=== PATIENT | female | born 1990 | race Caucasian/White ===

== ENCOUNTER 2017-02-06 16:36 | Emergency (ER) | payer OTHER ==
[2017-02-06 16:39] VITALS: BP 129/82; PULSE 122; TEMP 98.1; BMI 18.3
--- NOTE | 2017-02-06 17:09 | PDOC ---
History of Present Illness - General History Source: Patient Exam Limitations: No Limitations - History of Present Illness Initial Comments: 02/06/17 17:32 The patient is a 26 year old female with no significant past medical history who presents to the ED with complaints of 6 days of abdominal pain, nausea, and vomiting. The patient states that she was hungover Wednesday morning but persisted to feel sick the rest of the week. She reports a cramping, stabbing pain located mostly in her lower abdominal region. She also has been experiencing diarrhea throughout the week as well. The patient adds that she hasnt been eating as much due to her symptoms. 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 She denies any fever or chills, cough, shortness of breath, chest pain, or urinary symptoms. LMP was mid December. <Liv Rivera - Last Filed: 02/06/17 17:32> <Leilani Lisa - Last Filed: 02/08/17 02:59> - General History Source: Patient Exam Limitations: No Limitations <Dilma Mcpherson - Last Filed: 02/08/17 13:33> - General Chief Complaint: Pain Stated Complaint: ABDOMINAL PAIN Time Seen by Provider: 02/06/17 17:07 Past History <Liv Rivera - Last Filed: 02/06/17 17:32> <Leilani Lisa - Last Filed: 02/08/17 02:59> - Past Medical History Other medical history: NONE - Psycho/Social/Smoking Cessation Hx Anxiety: No Suicidal Ideation: No Smoking History: Current some day smoker Number of Cigarettes Smoked Daily: 3 Information on smoking cessation initiated: No Hx Alcohol Use: Yes (SOCIAL) Drug/Substance Use Hx: No Substance Use Type: None <Dilma Mcpherson - Last Filed: 02/08/17 13:33> - Past Medical History Allergies/Adverse Reactions: Allergies Allergy/AdvReac Type Severity Reaction Status Date / Time No Known Allergies Allergy Verified 02/06/17 16:39 Home Medications: Ambulatory Orders NK [No Known Home Medication] 02/06/17 Review of Systems - Review of Systems Able to Perform ROS?: Yes Comments:: 02/06/17 17:39 GENERAL/CONSTITUTIONAL: No fever or chills. No weakness. HEAD, EYES, EARS, NOSE AND THROAT: No change in vision. No ear pain or discharge. No sore throat. CARDIOVASCULAR: No chest pain or shortness of breath. RESPIRATORY: No cough, wheezing, or hemoptysis. GASTROINTESTINAL: Present: nausea, vomiting, diarrhea, abdominal pain No constipation. GENITOURINARY: No dysuria, frequency, or change in urination. MUSCULOSKELETAL: No joint or muscle swelling or pain. No neck or back pain. SKIN: No rash NEUROLOGIC: No headache, vertigo, loss of consciousness, or change in strength/ sensation. ENDOCRINE: No increased thirst. No abnormal weight change. HEMATOLOGIC/LYMPHATIC: No anemia, easy bleeding, or history of blood clots. ALLERGIC/IMMUNOLOGIC: No hives or skin allergy. All Other Systems: Reviewed and Negative <Liv Rivera - Last Filed: 02/06/17 17:32> *Physical Exam - Vital Signs Last Vital Signs Temp Pulse Resp BP Pulse Ox 98.1 F 122 H 20 129/82 99 02/06/17 16:37 02/06/17 16:37 02/06/17 16:37 02/06/17 16:37 02/06/17 16:37 - Physical Exam Comments: 02/06/17 17:40 GENERAL: Awake, alert, and fully oriented, in no acute distress HEAD: No signs of trauma EYES: PERRLA, EOMI, sclera anicteric, conjunctiva clear ENT: Auricles normal inspection, hearing grossly normal, nares patent, oropharynx clear without exudates. Moist mucosa NECK: Normal ROM, supple, no lymphadenopathy, JVD, or masses LUNGS: Breath sounds equal, clear to auscultation bilaterally. No wheezes, and no crackles HEART: Regular rate and rhythm, normal S1 and S2, no murmurs, rubs or gallops ABDOMEN: LUQ, LLQ, superpubic, RLQ tenderness. Normoactive bowel sounds. No guarding, no rebound. No masses EXTREMITIES: Normal range of motion, no edema. No clubbing or cyanosis. No cords, erythema, or tenderness NEUROLOGICAL: Cranial nerves II through XII grossly intact. Normal speech, normal gait SKIN: Warm, Dry, normal turgor, no rashes or lesions noted. <Liv Rivera - Last Filed: 02/06/17 17:32> - Vital Signs Last Vital Signs Temp Pulse Resp BP Pulse Ox 98.1 F 122 H 20 129/82 99 02/06/17 16:37 02/06/17 16:37 02/06/17 16:37 02/06/17 16:37 02/06/17 16:37 <Leilani Lisa - Last Filed: 02/08/17 02:59> - Vital Signs Last Vital Signs Temp Pulse Resp BP Pulse Ox 98.1 F 122 H 20 129/82 99 02/06/17 16:37 02/06/17 16:37 02/06/17 16:37 02/06/17 16:37 02/06/17 16:37 <Dilma Mcpherson - Last Filed: 02/08/17 13:33> ED Treatment Course - LABORATORY CBC & Chemistry Diagram: 02/06/17 17:20 02/06/17 17:20 - ADDITIONAL ORDERS Additional order review: Laboratory Results 02/06/17 02/06/17 02/06/17 18:36 17:20 17:20 Sodium 137 Potassium 4.1 Chloride 102 Carbon Dioxide 26 Anion Gap 9 BUN 9 Creatinine 0.6 Creat Clearance w eGFR > 60 Random Glucose 83 Calcium 9.2 Total Bilirubin 1.3 H AST 12 L ALT 18 Alkaline Phosphatase 61 Total Protein 7.0 Albumin 3.8 Total Amylase 63 Lipase 146 Beta HCG, Quant 51439.8 Serum , Qual Positive Urine Color Ltyellow Urine Appearance Clear Urine pH 7.0 Ur Specific [place] 1.010 Urine Protein Negative Urine Glucose (UA) Negative Urine Ketones 1+ H Urine Blood Negative Urine Nitrite Negative Urine Bilirubin Negative Urine Urobilinogen Negative Ur Leukocyte Esterase Trace H Urine RBC <1 Urine WBC 5 Ur Epithelial Cells Few Urine Bacteria Few Urine Mucus Rare 02/06/17 17:20 RBC 4.13 MCV 86.2 MCHC 33.6 RDW 13.9 MPV 8.4 Neutrophils % 76.8 Lymphocytes % 12.6 Monocytes % 8.8 Eosinophils % 1.2 Basophils % 0.6 - RADIOLOGY Radiology Studies Ordered: Category Date Time Status TRANSVAGINAL ULTRASOUND US [US] Stat Ultrasound 02/06/17 17:22 Ordered - Medications Given in the ED: ED Medications Discontinued Medications Generic Name Dose Route Start Last Admin Trade Name Freq PRN Reason Stop Dose Admin Sodium Chloride 1,000 mls @ 1,000 mls/hr 02/06/17 17:17 02/06/17 17:35 Normal Saline - IV 02/06/17 18:16 1,000 mls/hr ASDIR STA Administration Metoclopramide HCl 10 mg 02/06/17 18:13 02/06/17 18:18 Reglan Injection - IVPB 02/06/17 18:14 10 mg ONCE ONE Administration <Leilani Lisa - Last Filed: 02/08/17 02:59> - LABORATORY CBC & Chemistry Diagram: 02/06/17 17:20 02/06/17 17:20 <Dilma Mcpherson - Last Filed: 02/08/17 13:33> Medical Decision Making - Medical Decision Making 02/08/17 02:59 Patient Name: Chandrika Moran THIS IS A PRELIMINARYREPORT FROM [employer]INEER DATE OF SERVICE: 2017-02-06 19:23:45.0 IMAGES: 59 EXAM: OB sonogram HISTORY:Lower abdominal pain for 1 week COMPARISON: None. FINDINGS:There is a single live intrauterine gestation with an estimated age of 6 weeks and 3 days. heart rate is 120 bpm. The estimated date of delivery is 09/29/2017. There is normal blood flow to the ovaries and several follicular cyst of the right ovary IMPRESSION: Findings of a single live intrauterine gestation with an estimated gestational age of 6 weeks and 3 days THIS DOCUMENT HAS BEEN ELECTRONICALLY SIGNED Pt is . This is the cause of her abd pain and nausea and vomiting. She didn't know she was . She has no CORPORATE EVENTS DIRECTOR. I will refer her to our CORPORATE EVENTS DIRECTOR computer numerical control machinist. Pt will be discharged home. No vaginal bleeding and no other complaints. <Leilani Lisa - Last Filed: 02/08/17 02:59> - Medical Decision Making 02/06/17 17:09 A portion of this note was documented by scribe services under my direction. I have reviewed the details of the note, within reason, and agree with the documentation with the following case summary and management plan written by me. Nursing documentation reviewed and incorporated into medical decision making This is a 26-year-old female with no significant past medical history presented to emergency department with a complaint of lower abdominal pain. Patient states she became intoxicated approximately one week ago, awoke on Wednesday morning with abdominal pain. Since then she's had nausea, intermittent vomiting (non-bloody, non-bilious) She notes diffuse abdominal pain and tenderness. She's also noted diarrhea (non-bloody nonmucoid) No recent travel. No changes in diet. No ill contacts Last menstrual period December 21. Patient states she has a history of irregular periods. She has a history of vaginal discharge which currently is at her baseline On examination: Lower abdominal tenderness, LUQ, suprapubic tenderness No involuntary guarding No rebound tenderness 02/06/17 18:17 Laboratory Tests 02/06/17 02/06/17 02/06/17 17:20 17:20 17:20 WBC 9.9 Hgb 11.9 Hct 35.6 Plt Count 325 BUN 9 Creatinine 0.6 Serum , Qual Positive Urine Ketones 1+ H Urine Blood Negative Ur Leukocyte Esterase Trace H Urine RBC <1 Urine WBC 5 02/06/17 18:50 Pt is Awaiting Transvaginal US [facility]CG added Pt signed out Dr. Lisa <Dilma Mcpherson - Last Filed: 02/08/17 13:33> *DC/Admit/Observation/Transfer - Attestations Scribe Attestion: 02/06/17 17:41 Documentation prepared by Liv Rivera, acting as medical planner for Dilma Mcpherson MD. <Liv Rivera - Last Filed: 02/06/17 17:32> - Discharge Dispostion Admit: No <Leilani Lisa - Last Filed: 02/08/17 02:59> <Dilma Mcpherson - Last Filed: 02/08/17 13:33> Diagnosis at time of Disposition: , Morning sickness - Discharge Dispostion Disposition: HOME Condition at time of disposition: Stable - Referrals Referrals: STAFF,NOT ON [Primary Care Provider] - Yaneth Means MD [Staff Physician] - - Patient Instructions Printed Discharge Instructions: DI for Morning Sickness
[2017-02-06] MEDS ORDERED: SODIUM CHLORIDE 1,000 ML IV STA (17:17)
[2017-02-06 17:37] LABS: BASOPHIL 0.6 % (0-2.0); EOSINOPHIL 1.2 % (0-4.5); MCH 28.9 pg (25.7-33.7); MCHC 33.6 g/dl (32.0-36.0); MEAN CELL VOLUME 86.2 fl (80-96); MEAN PLT VOLUME 8.4 fl (7.5-11.1); NEUTROPHILS 76.8 % (42.8-82.8); PLATELET COUNT 325 K/MM3 (134-434); RDW 13.9 % (11.6-15.6); WHITE BLOOD COUNT 9.9 K/mm3 (4.0-10.0)
[2017-02-06 17:39] LABS: URINE APPEARANCE CLEAR; URINE BILIRUBIN NEGATIVE (NEGATIVE); URINE BLOOD NEGATIVE (NEGATIVE); URINE COLOR LTYELLOW; URINE GLUCOSE (UA) NEGATIVE (NEGATIVE); URINE KETONE 1+ (NEGATIVE); URINE NITRITE NEGATIVE (NEGATIVE); URINE PROTEIN NEGATIVE (NEGATIVE); URINE UROBILINOGEN NEGATIVE E.U./dl (0.2-1.0)
[2017-02-06 17:42] LABS: URINE LEUK ESTERASE TRACE (NEGATIVE)
[2017-02-06 17:43] LABS: URINE BACTERIA FEW /hpf (NONE SEEN); URINE MUCUS RARE; URINE RBC <1 /hpf (0-3); URINE WBC 5 /hpf (3-5)
[2017-02-06 18:00] LABS: ALBUMIN 3.8 g/dl (3.4-5.0); AMYLASE 63 U/L (25-115); ANION GAP 9 (8-16); BILIRUBIN,TOTAL 1.3 mg/dL (0.2-1.0); CALCIUM 9.2 mg/dL (8.5-10.1); CO2 26 mmol/L (21-32); CREATININE 0.6 mg/dL (0.55-1.02); GLUCOSE,RANDOM 83 mg/dL (74-106); SGOT/AST 12 U/L (15-37); SGPT/ALT 18 U/L (12-78)
[2017-02-06 18:01] LABS: ALK PHOS 61 U/L (45-117)
[2017-02-06] MEDS ORDERED: METOCLOPRAMIDE HCL INJECTION 10 MG/2 ML VIAL IVPB ONE (18:13)
[2017-02-06] MEDS ORDERED: METOCLOPRAMIDE HCL INJECTION 10 MG/2 ML VIAL ONE (18:17)
== END 2017-02-06 21:25 | disposition home or self-care (01) ==
LOC: JER 16:36
PROC: 3E0337Z Introduction of Electrolytic and Water Balance Substance into Peripheral Vein, Percutaneous Approach (ICD-10-PCS; principal; 2017-02-06)
PROC: 3E033GC Introduction of Other Therapeutic Substance into Peripheral Vein, Percutaneous Approach (ICD-10-PCS; 2017-02-06)
DX: O26.891 Other specified pregnancy related conditions, first trimester (principal); O21.0 Mild hyperemesis gravidarum; Z3A.01 Less than 8 weeks gestation of pregnancy
CPT/HCPCS: 36415; 76830-TC; 80053; 81003; 81015; 82150; 83690; 84702; 84703; 85025; 87077; 87086; 96361; 96374; 99282-25